=== PATIENT | male | born 1965 | race Caucasian/White ===

== ENCOUNTER 2017-09-06 08:30 | Emergency (ER) | payer SELFPAY ==
[~2017-09-06] VITALS: Ht 182.9 cm; Wt 93.0 kg
[2017-09-06 08:31] VITALS: BP 139/84; PULSE 87; RESP 18; TEMP 97.4; O2SAT 100
[2017-09-06] MEDS ORDERED: LISI10TA3 PO (08:58)
[2017-09-06 09:03] VITALS: BP 139/80; PULSE 77; RESP 20; TEMP 97.6; O2SAT 100
[2017-09-06] MEDS ORDERED: SODIUM CHLOR 0.9% 1000 ML INJ 1,000 ML IV ONE ×2 (09:30)
[2017-09-06] MEDS ORDERED: ONDANSETRON HCL 4 MG/2 ML VIAL IV ONE (09:30)
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
--- NOTE | 2017-09-06 09:58 | RADRPT ---
EXAM DATE/TIME: 09/06/2017 09:45 [facility] COMPARISON: No previous studies available for comparison. INDICATIONS : Cough MEDICAL HISTORY : Hypertension. SURGICAL HISTORY : None. ENCOUNTER: Initial ACUITY: 1 day PAIN SCORE: 0/10 LOCATION: chest FINDINGS: PA and lateral views of the lungs demonstrate mild hyperinflation of the left hemithorax as compared to the right. No evidence of air space consolidation or pneumothorax. The cardiomediastinal contours are unremarkable. Osseous structures are intact. CONCLUSION: No acute disease. Celia Locke MD on September 06, 2017 at 9:55 Board Certified Radiologist. This report was verified electronically.
[2017-09-06 10:02] LABS: AUTOMATED NEUTROPHIL # 2.3 TH/MM3 (1.8-7.7); BASOPHIL % 0.7 % (0.0-2.0); EOSINOPHIL # 0.1 TH/MM3 (0-0.4); EOSINOPHIL % 2.9 % (0.0-4.0); HEMATOCRIT 44.4 % (39.0-51.0); HEMOGLOBIN 15.5 GM/DL (13.0-17.0); LYMPH % 36.2 % (9.0-44.0); LYMPHOCYTE # 1.5 TH/MM3 (1.0-4.8); MEAN CELL VOLUME 86.6 FL (80.0-100.0); MEAN CORPUSCULAR HEMOGLOBIN 30.2 PG (27.0-34.0); MEAN CORPUSCULAR HGB CONC 34.9 % (32.0-36.0); MEAN PLATELET VOLUME 8.3 FL (7.0-11.0); MONOCYTE # 0.2 TH/MM3 (0-0.9); NEUT % 55.2 % (16.0-70.0); PLATELET COUNT 261 TH/MM3 (150-450); RED BLOOD COUNT 5.13 MIL/MM3 (4.50-5.90); RED CELL DISTRIBUTION WIDTH 13.1 % (11.6-17.2); WHITE BLOOD COUNT 4.1 TH/MM3 (4.0-11.0)
[2017-09-06 10:33] LABS: ALBUMIN 3.9 GM/DL (3.4-5.0); ALT (GPT) 37 U/L (12-78); AST (GOT) 34 U/L (15-37); BICARBONATE 26.3 MEQ/L (21.0-32.0); BLOOD UREA NITROGEN 12 MG/DL (7-18); CALCIUM 8.2 MG/DL (8.5-10.1); CHLORIDE 104 MEQ/L (98-107); CREATININE 1.46 MG/DL (0.60-1.30); GLOMERULAR FILTRATION RATE 51 ML/MIN (>89); GLUCOSE,RANDOM 158 MG/DL (74-106); SODIUM (NA) 139 MEQ/L (136-145)
[2017-09-06 10:34] LABS: ALKALINE PHOSPHATASE 88 U/L (45-117); TOTAL BILIRUBIN ADULT 2.4 MG/DL (0.2-1.0)
[2017-09-06 12:30] LABS: BILIRUBIN, URINE NEG (NEG); BLOOD, URINE NEG (NEG); GLUCOSE,URINE NEG (NEG); KETONE, URINE NEG (NEG); NITRITE,URINE NEG (NEG); URINE COLOR COLORLESS (YELLW/STRAW); URINE LEUKOCYTE ESTERASE NEG (NEG)
[2017-09-06 14:00] VITALS: BP 141/78; PULSE 64; RESP 18; TEMP 97.6; O2SAT 99
[2017-09-06] MEDS ORDERED: ONDA4TAB7 SL (14:22)
--- NOTE | 2017-09-07 09:40 | EKG ---
Date Performed: 09/06/2017 Time Performed: 09:55:48 PTAGE: 51 years EKG: Sinus rhythm NORMAL ECG NO PREVIOUS TRACING DOCTOR: Geovany Cross Interpretating Date/Time 09/07/2017 09:40:13
== END 2017-09-06 14:44 | disposition home or self-care (01) ==
LOC: NEPE 08:30
DX: E86.0 Dehydration (principal); R05 Cough; I10 Essential (primary) hypertension; Z79.899 Other long term (current) drug therapy
CPT/HCPCS: 71046; 80053; 81001; 83605; 83690; 84484; 85025; 87040; 93005; 96361; 96374; 99285; J2405; J7030